=== PATIENT | female | born 1960 | race Caucasian/White ===

== ENCOUNTER 2017-03-27 14:04 | Emergency (ER) | payer MEDICARE ==
[2017-03-27 14:21] LABS: URINE APPEARANCE CLEAR; URINE BILIRUBIN NEGATIVE (NEGATIVE); URINE BLOOD MODERATE (NEGATIVE); URINE COLOR YELLOW; URINE GLUCOSE (UA) NEGATIVE (NEGATIVE); URINE KETONE NEGATIVE (NEGATIVE); URINE LEUKOCYTE ESTERASE SMALL (NEGATIVE); URINE NITRITE NEGATIVE (NEGATIVE); URINE PROTEIN NEGATIVE (NEGATIVE); URINE UROBILINOGEN 0.2 E.U./dL (0.20 - 1.00)
--- NOTE | 2017-03-27 14:25 | Emergency Department Record ---
History of Present Illness - General Chief complaint: Female Urogenital Problem Stated complaint: UTI Time Seen by Provider: 03/27/17 14:24 Source: Patient Mode of Arrival: Ambulatory Limitations: No limitations - History of Present Illness Initial comments: The patient is here due to a 2 day hx of dysuria. She denies any AP, nausea, vomiting, back pain, or fever. MD Complaint: Dysuria Onset/Timin -: Days(s) Location: Suprapubic Radiation: Non-radiating Severity: Mild Severity scale (1-10): 2 Quality: Other Consistency: Intermittent Improves with: None Worsens with: Urination Associated Symptoms: Abdominal pain - Related Data Home Medications Medication Instructions Recorded Confirmed Last Taken Biotin [Hard Nails] 5,000 mcg PO DAILY 03/19/15 03/27/17 03/27/17 Calcium Carbonate [Calcium] 600 mg PO BID 03/19/15 03/27/17 03/27/17 Cholecalciferol (Vitamin D3) 2,000 unit PO DAILY 03/19/15 03/27/17 03/27/17 [Vitamin D3] Cyanocobalamin (Vitamin B-12) 1,000 mcg PO DAILY 03/19/15 03/27/17 03/27/17 [Vitamin B-12] Ferrous Sulfate [Iron] 325 mg PO DAILY 03/19/15 03/27/17 03/27/17 Multivitamin [Multi-Vitamin Daily] 1 each PO DAILY 03/19/15 03/27/17 03/27/17 Cyclobenzaprine HCl 10 mg PO 1-2XD tab 09/23/16 03/27/17 Unknown Turmeric Root Extract [Turmeric] 1,600 mg PO DAILY cap 09/23/16 03/27/17 Unknown Previous Rx's Medication Instructions Recorded Ciprofloxacin HCl [Cipro] 250 mg PO Q12H #10 tablet 03/27/17 Phenazopyridine HCl [Pyridium] 100 mg PO TID #6 tablet 03/27/17 Allergies Allergy/AdvReac Type Severity Reaction Status Date / Time barium iodide Allergy Intermediate PT UNSURE Verified 03/27/17 14:23 OF REACTION acetaminophen Allergy RASH Verified 03/27/17 14:23 [From Darvocet-N] propoxyphene napsylate Allergy RASH Verified 03/27/17 14:23 [From Darvocet-N] Sulfa (Sulfonamide Allergy "bruising Verified 03/27/17 14:23 Antibiotics) and bloody sclera." NSAIDS (Non-Steroidal AdvReac GI upset Verified 03/27/17 14:23 Anti-Inflamma Travel Screening - Travel/Exposure Within Last 30 Days Have you traveled within the last 30 days?: No Past Medical History - SOCIAL HISTORY Smoking Status: Former smoker Alcohol Use: None Drug Use: None - RESPIRATORY Hx Respiratory Disorders: No - CARDIOVASCULAR Hx Cardio Disorders: Yes Hx Hypertension: Yes - NEURO Hx Neuro Disorders: Yes - GI Hx GI Disorders: Yes Hx Reflux: Yes - Hx Genitourinary Disorders: Yes Hx UTI: Yes - ENDOCRINE Hx Endocrine Disorders: Yes - MUSCULOSKELETAL Hx Musculoskeletal Disorders: Yes Hx Arthritis: Yes - PSYCH Hx Psych Problems: Yes Hx Depression: Yes - HEMATOLOGY/ONCOLOGY Hx Hematology/Oncology Disorders: No Family Medical History Any Significant Family History?: Yes Family Hx Comment (NOT TO BE USED IN PLACE OF ITEMS BELOW): diabetes Hx Cancer: Grandparents Hx Stroke: Grandparents Physical Exam - General General Appearance: Alert, Oriented x3, Cooperative, No acute distress - Head Head exam: Atraumatic, Normocephalic, Normal inspection - Eye Eye exam: Normal appearance - Neck Neck exam: Normal inspection, Full ROM. negative: Tenderness - Respiratory Respiratory exam: Normal lung sounds bilaterally. negative: Respiratory distress - Cardiovascular Cardiovascular Exam: Regular rate, Normal rhythm, Normal heart sounds - GI/Abdominal GI/Abdominal exam: Soft, Normal bowel sounds, Tenderness (There is mild suprapubic tenderness.). negative: Rigid Course Vital Signs 03/27/17 14:16 Temperature 97.4 F L Pulse Rate 66 Respiratory 16 Rate Blood Pressure 133/84 Pulse Ox 98 Medical Decision Making - Data Complexity MDM Data: Labs Ordered and/or Reviewed Disposition Disposition: Discharge Clinical Impression: Cystitis Disposition: Home, Self-Care Condition: (1) Good Instructions: Urinary Tract Infection in Women (ED) Additional Instructions: Please take the Cipro and Pyridium as directed. Please return to the ER if not better in 2 days and sooner for any increased pain, fever, or vomiting. Prescriptions: Ciprofloxacin HCl [Cipro] 250 mg PO Q12H #10 tablet Phenazopyridine HCl [Pyridium] 100 mg PO TID #6 tablet Forms: Patient Portal Access Time of Disposition: 14:46
[2017-03-27 14:28] LABS: URINE BACTERIA FEW; URINE EPITHELIAL CELLS RARE (FEW)
== END 2017-03-27 15:10 | disposition home or self-care (01) ==
LOC: ER 14:04
DX: N30.91 Cystitis, unspecified with hematuria (principal)
CPT/HCPCS: 81001; 99282

== ENCOUNTER 2018-08-19 16:40 | Emergency (ER) | payer MEDICARE ==
[2018-08-19 17:03] LABS: URINE APPEARANCE CLEAR; URINE BILIRUBIN NEGATIVE (NEGATIVE); URINE BLOOD TRACE-I (NEGATIVE); URINE COLOR YELLOW; URINE GLUCOSE (UA) NEGATIVE (NEGATIVE); URINE KETONE NEGATIVE (NEGATIVE); URINE LEUKOCYTE ESTERASE LARGE (NEGATIVE); URINE NITRITE NEGATIVE (NEGATIVE); URINE PROTEIN NEGATIVE (NEGATIVE); URINE UROBILINOGEN 0.2 E.U./dL (0.20 - 1.00)
[2018-08-19 17:10] LABS: URINE EPITHELIAL CELLS 0 - 2 (FEW); URINE WBC 16 - 20 (0-2/hpf)
--- NOTE | 2018-08-19 17:15 | Emergency Department Record ---
History of Present Illness - General Chief complaint: Female Urogenital Problem Stated complaint: UTI Time Seen by Provider: 08/19/18 16:50 Source: Patient, RN notes reviewed Mode of Arrival: Ambulatory - History of Present Illness Initial comments: frequency and burining on urination for 4 days Complaint: Dysuria Onset/Timin -: Days(s) - Related Data Previous Rx's Medication Instructions Recorded Ciprofloxacin HCl [Cipro] 500 mg PO Q12HR #20 tablet 08/19/18 Allergies Allergy/AdvReac Type Severity Reaction Status Date / Time barium iodide Allergy Intermediate PT UNSURE Unverified 08/19/18 16:47 OF REACTION acetaminophen Allergy RASH Unverified 08/19/18 16:47 [From Darvocet-N] propoxyphene napsylate Allergy RASH Unverified 08/19/18 16:47 [From Darvocet-N] Sulfa (Sulfonamide Allergy "bruising Unverified 08/19/18 16:47 Antibiotics) and bloody sclera." NSAIDS (Non-Steroidal AdvReac GI upset Unverified 08/19/18 16:47 Anti-Inflamma Travel Screening - Travel/Exposure Within Last 30 Days Have you traveled within the last 30 days?: No - Travel/Exposure Within Last Year Have you traveled outside the [place] in the last year?: No - Additonal Travel Details Have you been exposed to anyone with a communicable illness?: No - Travel Symptoms Symptom Screening: None Review of Systems Reviewed: No additional complaints except as noted below Constitutional: Reports: As per HPI. Denies: Chills, Fever, Malaise, Night sweats, Weakness, Weight change Eyes: Reports: As per HPI. Denies: Eye discharge, Eye pain, Photophobia, Vision change ENT: Reports: As per HPI. Denies: Congestion, Dental pain, Ear pain, Epistaxis , Hearing loss, Throat pain Respiratory: Reports: As per HPI. Denies: Cough, Dyspnea, Hemoptysis, Stridor, Wheezes Cardiovascular: Reports: As per HPI. Denies: Arrhythmia, Chest pain, Dyspnea on exertion, Edema, Murmurs, Orthopnea, Palpitations, Paroxysmal nocturnal dyspnea, Rheumatic Fever, Syncope Endocrine: Reports: As per HPI. Denies: Fatigue, Heat or cold intolerance, Polydipsia, Polyuria Gastrointestinal: Reports: As per HPI. Denies: Abdominal pain, Constipation, Diarrhea, Hematemesis, Hematochezia, Melena, Nausea, Vomiting Genitourinary: Reports: As per HPI, Dysuria. Denies: Abnormal menses, Discharge , Dyspareunia, Frequency, Hematuria, Incontinence, Retention, Urgency Musculoskeletal: Reports: As per HPI. Denies: Arthralgia, Back pain, Gout, Joint swelling, Myalgia, Neck pain Skin: Reports: As per HPI. Denies: Bruising, Change in color, Change in hair/ nails, Lesions, Pruritus, Rash Neurological: Reports: As per HPI. Denies: Abnormal gait, Confusion, Headache, Numbness, Paresthesias, Seizure, Tingling, Tremors, Vertigo, Weakness Psychiatric: Reports: As per HPI. Denies: Anxiety, Auditory hallucinations, Depression, Homicidal thoughts, Suicidal thoughts, Visual hallucinations Hematological/Lymphatic: Reports: As per HPI. Denies: Anemia, Blood Clots, Easy bleeding, Easy bruising, Swollen glands Past Medical History - SOCIAL HISTORY Smoking Status: Former smoker Alcohol Use: None Drug Use: None - RESPIRATORY Hx Respiratory Disorders: No - CARDIOVASCULAR Hx Cardio Disorders: Yes Hx Hypertension: Yes - NEURO Hx Neuro Disorders: Yes - GI Hx GI Disorders: Yes Hx Reflux: Yes - Hx Genitourinary Disorders: Yes Hx UTI: Yes - ENDOCRINE Hx Endocrine Disorders: Yes - MUSCULOSKELETAL Hx Musculoskeletal Disorders: Yes Hx Arthritis: Yes - PSYCH Hx Psych Problems: Yes Hx Depression: Yes - HEMATOLOGY/ONCOLOGY Hx Hematology/Oncology Disorders: No Family Medical History Any Significant Family History?: Yes Family Hx Comment (NOT TO BE USED IN PLACE OF ITEMS BELOW): diabetes Hx Cancer: Grandparents Hx Stroke: Grandparents Physical Exam - General General Appearance: Alert, Oriented x3, Cooperative, No acute distress - Head Head exam: Normal inspection - Eye Eye exam: Normal appearance, PERRL Pupils: Normal accommodation - ENT ENT exam: Normal exam, Mucous membranes moist, Normal external ear exam, Normal orophraynx, TM's normal bilaterally Ear exam: Normal external inspection. negative: External canal tenderness Nasal Exam: Normal inspection. negative: Discharge, Sinus tenderness Mouth exam: Normal external inspection, Tongue normal Teeth exam: Normal inspection. negative: Dental caries Throat exam: Normal inspection. negative: Tonsillar erythema, Tonsillar exudate - Neck Neck exam: Normal inspection, Full ROM. negative: Tenderness - Respiratory Respiratory exam: Normal lung sounds bilaterally. negative: Respiratory distress - Cardiovascular Cardiovascular Exam: Regular rate, Normal rhythm, Normal heart sounds - GI/Abdominal GI/Abdominal exam: Soft, Normal bowel sounds. negative: Tenderness - Rectal Rectal exam: Deferred - exam: Deferred - Extremities Extremities exam: Normal inspection, Full ROM, Normal capillary refill. negative: Tenderness - Back Back exam: Reports: Normal inspection, Full ROM. Denies: Muscle spasm, Rash noted, Tenderness - Neurological Neurological exam: Alert, Normal gait, Oriented X3, Reflexes normal - Psychiatric Psychiatric exam: Normal affect, Normal mood - Skin Skin exam: Dry, Intact, Normal color, Warm Course Vital Signs 08/19/18 16:50 Temperature 97.7 F Pulse Rate 82 Respiratory 16 Rate Blood Pressure 120/83 Pulse Ox 98 Medical Decision Making - Lab Data Lab Results 08/19/18 Range/Units 16:55 Urine Color Yellow Urine Appearance Clear Urine pH 5.5 (5.0-8.0) Ur Specific [place] 1.010 (1.002-1.030) Urine Protein Negative (NEGATIVE) Urine Glucose (UA) Negative (NEGATIVE) Urine Ketones Negative (NEGATIVE) Urine Blood Trace-i (NEGATIVE) Urine Nitrite Negative (NEGATIVE) Urine Bilirubin Negative (NEGATIVE) Urine Urobilinogen 0.2 (0.20 - 1.00) E.U./dL Ur Leukocyte Esterase Large H (NEGATIVE) Urine RBC 7 - 10 (NONE SEEN) Urine WBC 16 - 20 (0-2/hpf) Ur Epithelial Cells 0 - 2 (FEW) Disposition Clinical Impression: UTI (urinary tract infection) Qualifiers: Urinary tract infection type: acute cystitis Hematuria presence: without hematuria Qualified Code(s): N30.00 - Acute cystitis without hematuria Disposition: Home, Self-Care Condition: (1) Good Instructions: Urinary Tract Infection in Women (ED) Additional Instructions: follow up with family Dr in 3 days Prescriptions: Ciprofloxacin HCl [Cipro] 500 mg PO Q12HR #20 tablet Time of Disposition: 17:15 Quality - Quality Measures Quality Measures: N/A - Blood Pressure Screening Does Patient Have Any of the Following: No Blood Pressure Classification: Pre-Hypertensive BP Reading Systolic Measurement: 120 Diastolic Measurement: 83 Screening for High Blood Pressure: < Pre-Hypertensive BP, F/U Documented > [ [id number]] Pre-Hypertensive Follow-up Interventions: Referral to alternative/primary care provider.
== END 2018-08-19 17:23 | disposition home or self-care (01) ==
LOC: ER 16:40
DX: N30.00 Acute cystitis without hematuria (principal); I10 Essential (primary) hypertension; Z87.891 Personal history of nicotine dependence
CPT/HCPCS: 81001; 99282

== ENCOUNTER 2019-05-07 09:30 | Day surgery (SDC) | payer MEDICARE ==
[~2019-05-07 09:30] MED LIST: ACETAMINOPHEN 1,000 MG/100 ML BTL IVPB ONE
[2019-05-07] MEDS ORDERED: MIDAZOLAM HCL 2MG/2ML VIAL IV ONE (09:31)
[2019-05-07] MEDS ORDERED: PROPOFOL 10 MG/ML VIAL IV ONE (09:31)
[2019-05-07] MEDS ORDERED: FENTANYL PF 100MCG/2ML VIAL IV ONE (09:31)
[2019-05-07] MEDS ORDERED: LIDOCAINE 2% MDV (20MG/ML) 20ML VIAL IV ONE (09:31)
[2019-05-07] MEDS ORDERED: RINGERS SOLUTION,LACTATED 1,000 ML IV ONE (10:40)
[2019-05-07] MEDS ORDERED: BUPIVACAINE 0.25% W/EPI MPF 30ML VIAL SQ ONE (13:25)
[2019-05-07] MEDS ORDERED: HYDROCODONE/APAP 5/325MG TABLET PO ONE (13:55)
--- NOTE | 2019-05-08 08:50 | Operative Note ---
DATE OF SURGERY: 05/07/2019 SURGEON: Josué Cunningham DO PREOPERATIVE DIAGNOSIS: Scalp mass x2. POSTOPERATIVE DIAGNOSIS: Scalp mass x2. OPERATION: Excision of scalp mass x2. PROCEDURE: The patient is a 58-year-old female who was brought to the operating room and placed in a supine position. Local with IV sedation was given per the department of anesthesia. The patient's scalp had been prepped and draped in the usual fashion. Area around each mass had been anesthetized with a total of 5 mL of 0.25% Sensorcaine with epinephrine. The one anterior was incised. This was a 3 cm sebaceous cyst down to the subcu. This was fully excised without rupture. This wound was then closed with 3-0 Prolene. Attention now turned to the posterior aspect where an identical procedure was done. This one measured 2 cm into the subcu. This also was closed with 3-0 Prolene. The patient was taken to the recovery room in stable condition. Final pathology pending. CC: JACKIE Walsh
== END 2019-05-07 14:18 | disposition home or self-care (01) ==
LOC: SUR 09:30
PROVIDERS: ATTEND Surgery
DX: L72.11 Pilar cyst (principal); I10 Essential (primary) hypertension; D64.9 Anemia, unspecified; K21.9 Gastro-esophageal reflux disease without esophagitis
CPT/HCPCS: 11423; 11422; 00300; J3010; J7120